=== PATIENT | female | born 1965 | race Caucasian/White ===

== ENCOUNTER 2018-09-22 09:14 | Emergency (ER) | payer BC ==
[~2018-09-22] VITALS: Ht 162.6 cm; Wt 90.7 kg
--- NOTE | 2018-09-22 09:23 | NUR ---
PT A/OX4, PRESENTS TO THE ER C/O SKIN RASH THROUGHOUT BODY X 1 DAY. PT REPORTS GENERALIZED ITCHINESS. REDNESS AND MILD EDEMA NOTED AROUND RASH SITES. PT DENIES PAIN, C/P, SOB, N/V/D, DIZZINESS, HEADACHE. ER MD AT BEDSIDE FOR MSE.
[2018-09-22] MEDS ORDERED: ATOR20TA PO (09:24)
[2018-09-22] MEDS ORDERED: methylPREDNISolone ACETATE 40 MG VIAL ONE (09:41)
--- NOTE | 2018-09-22 09:43 | NUR ---
DPatient discharged to home in stable conditon. Written and verbal after care instructions given. Patient verbalizes understanding of instructions. PT D/C/ W/ PRESCRIPTIONS. ALL BELONGINGS W/ PT. PT SELF-AMBULATED W/O DIFFICULTY.
[2018-09-22 09:45] VITALS: BP 140/69
[2018-09-22] MEDS ORDERED: methylPREDNISolone ACETATE 40 MG VIAL IM ONE (09:45)
== END 2018-09-22 09:50 | disposition home or self-care (01) ==
LOC: ER 09:14
DX: L50.9 Urticaria, unspecified (principal); E78.00 Pure hypercholesterolemia, unspecified; Z88.1 Allergy status to other antibiotic agents; Z88.8 Allergy status to other drugs, medicaments and biological substances
CPT/HCPCS: 96372; 99283; J1030; A4663